=== PATIENT | female | born 1970 | race Hispanic/Latino ===

== ENCOUNTER 2018-01-04 11:39 | Emergency (ER) | payer BC, OTHER ==
[2018-01-04 11:47] VITALS: BP 122/91; PULSE 77; TEMP 97; O2SAT 98
[2018-01-04 13:01] LABS: BASO # 0.1 K/uL (0.0-0.2); BASO % 0.8 % (0.0-2.0); EOS # 0.1 K/uL (0.0-0.7); EOS % 0.6 % (0.0-4.0); HEMOGLOBIN 14.2 g/dL (12.0-16.0); LYMPH # 1.8 K/uL (1.0-4.3); LYMPH % 19.6 % (20.0-40.0); MEAN CORPUSCULAR HEMOGLOBIN 30.3 pg (27.0-31.0); MEAN CORPUSCULAR HGB CONC 34.4 g/dL (33.0-37.0); MEAN PLATELET VOLUME 8.5 fl (7.2-11.7); MONO # 0.5 K/uL (0.0-0.8); MONO % 5.9 % (0.0-10.0); NEUT # 6.6 K/uL (1.8-7.0); NEUT % 73.1 % (50.0-75.0); RBC 4.68 Mil/uL (3.80-5.20); RED CELL DISTRIBUTION WIDTH 14.4 % (11.5-14.5)
[2018-01-04 13:12] LABS: PROTHROMBIN TIME 10.9 Seconds (9.8-13.1)
--- NOTE | 2018-01-04 13:12 | RAD ---
HISTORY: SOB COMPARISON: No prior. TECHNIQUE: Chest PA and lateral FINDINGS: LUNGS: No active pulmonary disease. PLEURA: No significant pleural effusion identified. No pneumothorax apparent. CARDIOVASCULAR: Normal. OSSEOUS STRUCTURES: S-shaped thoracolumbar scoliosis. VISUALIZED UPPER ABDOMEN: Normal. OTHER FINDINGS: None. IMPRESSION: No active disease.
[2018-01-04 13:21] LABS: ALB/GLOB RATIO 1.1 (1.0-2.1); ALBUMIN 4.3 g/dL (3.5-5.0); ALT/SGPT 26 U/L (9-52); AST/SGOT 24 U/L (14-36); BLOOD UREA NITROGEN 16 mg/dl (7-17); CALCIUM 9.8 mg/dL (8.4-10.2); GFR AFRICAN-AMERICAN > 60; GFR NON-AFRICAN AMERICAN > 60; LIPASE 53 U/L (23-300)
--- NOTE | 2018-01-04 15:02 | ED PDOC ---
HPI: Back Time Seen by Provider: 01/04/18 11:57 Chief Complaint (Nursing): Back Pain Chief Complaint (Provider): Back Pain History Per: Patient History/Exam Limitations: no limitations Onset/Duration Of Symptoms: Days Current Symptoms Are (Timing): Still Present Quality Of Discomfort: "Pain" Associated Symptoms: Other (shortness of breath and shoulder pain) Exacerbating Factor(s): Movement Additional Complaint(s): 47 year old female presents to the ED for an evaluation of back pain onset Wednesday. States the pain initially started on right lower side and now it is on the left lower side. Patient too ibuprofen since onset. Pain is radiating up to the shoulder and worsened since onset and due to movement. When pain is most severe, she has trouble breathing. States she has had a history of similar symptoms and muscle spams. Denies fever, cough, nausea, vomiting, nausea, abdominal pain, urinary symptoms, inconsistency numbness or weakness. Of note: her last menstrual period was today PMD: Provider in [facility] Past Medical History Reviewed: Historical Data, Nursing Documentation, Vital Signs Vital Signs: Last Vital Signs Temp 97 F L 01/04/18 11:46 Pulse 77 01/04/18 11:46 Resp BP 122/91 H 01/04/18 11:46 Pulse Ox 98 01/04/18 11:46 - Medical History PMH: Hypothyroidism - Surgical History Surgical History: No Surg Hx - Family History Family History: States: Unknown Family Hx - Social History Current smoker - smoking cessation education provided: No Alcohol: None Drugs: Denies - Immunization History Hx Tetanus Toxoid Vaccination: No Hx Influenza Vaccination: No Hx Pneumococcal Vaccination: No - Home Medications Home Medications: Ambulatory Orders Medication Instructions Recorded Cyclobenzaprine [Cyclobenzaprine 10 mg PO Q8 PRN #12 tab 01/04/18 HCl] Naproxen 500 mg PO BID PRN #20 tab 01/04/18 - Allergies Allergies/Adverse Reactions: Allergies Allergy/AdvReac Type Severity Reaction Status Date / Time No Known Allergies Allergy Verified 01/04/18 11:42 Review of Systems ROS Statement: Except As Marked, All Systems Reviewed And Found Negative Constitutional: Negative for: Fever Respiratory: Positive for: Shortness of Breath. Negative for: Cough Gastrointestinal: Negative for: Nausea, Vomiting, Abdominal Pain Genitourinary Female: Negative for: Frequency, Incontinence Musculoskeletal: Positive for: Shoulder Pain, Back Pain (left-lower) Neurological: Negative for: Weakness, Numbness Physical Exam - Physical Exam Comments: GENERAL APPEARANCE: Patient is awake, alert, oriented x 3, uncomfortable, in no acute distress. SKIN: Warm, dry; (-) cyanosis. EYES: (-) conjunctival pallor. ENMT: Mucous membranes moist. NECK: (-) tenderness, (-) stiffness, (-) lymphadenopathy. CHEST AND RESPIRATORY: (-) rales, (-) rhonchi, (-) wheezes; breath sounds equal bilaterally. HEART AND CARDIOVASCULAR: (-) irregularity; (-) murmur, (-) gallop. ABDOMEN AND GI: Soft; (-) tenderness; (-) palpable mass. BACK: (+) right parathoracic tenderness, (+) mild spasm on right side, (+) right trapezius and tropreus tenderness, (-) direct bony tenderness, (-) deformity. Straight leg raising (+) full ROM bilaterally. EXTREMITIES: (-) deformity. Distal pulses good bilaterally. NEURO AND PSYCH: Mental status as above. Intact sensation bilaterally; normal strength in extension of the knees, plantar and dorsiflexion of the toes. DTRs symmetric. - Laboratory Results Result Diagrams: 01/04/18 12:50 01/04/18 12:50 Urine POC: Negative Urine dip results: Positive for: Blood (large (Patient currently menstruating)) , Protein (trace). Negative for: Leukocyte Esterase, Nitrate, Ketones, Glucose , Bilirubin - ECG O2 Sat by Pulse Oximetry: 98 (RA) Pulse Ox Interpretation: Normal Medical Decision Making Medical Decision Making: Time: 1230 Initial Impression: acute back pain Initial Plan: --EKG --CMP --Lipase --Troponin --ED Urine --ED Urine Dipstick --CBC w/ Differential --D-Dimer [COAG] --PTT --Prothrombin Time --Chest Two Views [RAD] --Ultram 50mg --Valium 5mg --IV Insertion --Reevaluation 1250 EKG: NSR @ 60bpm, (-) ST elevations (-) ectopy, QTc 428 1315 CXR reviewed, radiology report follows HISTORY: SOB COMPARISON: No prior. TECHNIQUE: Chest PA and lateral FINDINGS: LUNGS: No active pulmonary disease. PLEURA: No significant pleural effusion identified. No pneumothorax apparent. CARDIOVASCULAR: Normal. OSSEOUS STRUCTURES: S-shaped thoracolumbar scoliosis. VISUALIZED UPPER ABDOMEN: Normal. OTHER FINDINGS: None. IMPRESSION: No active disease. 1340 On re-evaluation, patient reports mild improvement of presenting symptoms however still feels uncomfortable at this time. Tramadol 50mg PO ordered. Labs reviewed and grossly unremarkable. 1500 On re-evaluation, patient resting comfortably. No additional complaints at this time. Awaiting urine specimen. Vitals stable. 1530 Udip reviewed and grossly unremarkable. (+) blood but patient is currently menstruating. Upreg: negative 1550 On re-evaluation, patient reports resolution of symptoms, denies any back pain, chest pain, abdominal pain, SOB at present. On exam, patient remains AAOx3, in no acute distress. Lungs clear to auscultation, cardiac RRR, abdomen soft, non- tender, repeat neuro exam shows no focal findings. Vitals stable, stable for discharge. Lab/Diagnostic results d/w the patient in great detail. Diagnosis of acute back pain, muscle spasm d/w the patient. Based on history, exam and diagnostic results, plan will be for outpatient follow up with PMD/ortho. Patient instructed to follow-up with pmd / referral provided / the clinic in 1- 2 days without fail. Advised to take medication as prescribed. Return to the emergency room at any time for any new or worsening symptoms. Patient states she fully agrees with and understands discharge instructions. States that she agrees with the plan and disposition. Verbalized and repeated discharge instructions and plan. I have given the patient opportunity to ask any additional questions. Scribe Attestation: Documented by Joss Lamb, acting as a scribe for Leila Daniels PA-C Provider Scribe Attestation: All medical record entries made by the Scribe were at my direction and personally dictated by me. I have reviewed the chart and agree that the record accurately reflects my personal performance of the history, physical exam, medical decision making, and the department course for this patient. I have also personally directed, reviewed, and agree with the discharge instructions and disposition. Disposition - Clinical Impression Clinical Impression: Back pain, Muscle spasm of back - Patient ED Disposition Is Patient to be Admitted: No Counseled Patient/Family Regarding: Studies Performed, Diagnosis, Need For Followup, Rx Given - Disposition Referrals: Benito Drummond III, MD [Staff Provider] - Disposition: Routine/Home Disposition Time: 15:54 Condition: STABLE Additional Instructions: FOLLOW UP WITH PMD/ORTHO IN 1-2 DAYS WITHOUT FAIL. RETURN TO ED WITH ANY NEW OR WORSENING SYMPTOMS. Prescriptions: Cyclobenzaprine [Cyclobenzaprine HCl] 10 mg PO Q8 PRN #12 tab PRN Reason: Muscle Spasm Naproxen 500 mg PO BID PRN #20 tab PRN Reason: Pain, Moderate (4-7) Instructions: Muscle Spasms (DC), Upper Back Pain, Low Back Pain in Adults Forms: [employer] (Danish) Print Language: GERMAN - POA Present On Arrival: None Results - Lab Results Lab Results: 01/04/18 01/04/18 01/04/18 12:50 12:50 12:50 WBC 9.0 RBC 4.68 Hgb 14.2 Hct 41.2 MCV 88.0 MCH 30.3 MCHC 34.4 RDW 14.4 Plt Count 263 MPV 8.5 Neut % (Auto) 73.1 Lymph % (Auto) 19.6 L [place] % (Auto) 5.9 Eos % (Auto) 0.6 Baso % (Auto) 0.8 Neut # (Auto) 6.6 Lymph # (Auto) 1.8 [place] # (Auto) 0.5 Eos # (Auto) 0.1 Baso # (Auto) 0.1 PT 10.9 INR 1.0 APTT 24.0 L D-Dimer, Quantitative 186 Sodium 140 Potassium 4.5 Chloride 105 Carbon Dioxide 24 Anion Gap 16 BUN 16 Creatinine 0.8 Est GFR ( Amer) > 60 Est GFR (Non-Af Amer) > 60 Random Glucose 108 H Calcium 9.8 Total Bilirubin 0.5 AST 24 ALT 26 Alkaline Phosphatase 97 Troponin I < 0.0120 Total Protein 8.1 Albumin 4.3 Globulin 3.8 Albumin/Globulin Ratio 1.1 Lipase 53
--- NOTE | 2018-01-04 15:07 | CARD ---
APPROVED REPORT EKG Measurement Heart [id number] ND [id number] [id number] <Conclusion> Normal sinus rhythm Normal ECG
== END 2018-01-04 16:23 | disposition home or self-care (01) ==
LOC: H.ER 11:39
DX: M62.830 Muscle spasm of back (principal); E03.9 Hypothyroidism, unspecified
CPT/HCPCS: 71046; 80053; 81025; 83690; 84484; 85025; 85378; 85610; 85730; 93005; 96374; 99284; J1885